=== PATIENT | female | born 1965 | race Caucasian/White ===

== ENCOUNTER 2024-04-30 06:12 | Observation (INO) ==
--- NOTE | 2024-04-06 15:35 | PAT Medication Instructions ---
Medication Instructions Date of Service April 06, 2024 Home Medications Medication Instructions Recorded blood-glucose meter (OneTouch #1 ea 05/30/23 Verio Flex Start kit) albuterol sulfate 2.5 mg/3 mL 2.5 mg (3 mL) inhalation Q4H PRN 08/06/23 (0.083 %) solution for nebulization shortness of breath or wheezing #75 mL blood sugar diagnostic (OneTouch #100 ea 12/18/23 Verio test strips) metformin 500 mg tablet,extended 1,000 mg (2 x 500 mg) PO BID #360 01/05/24 release 24 hr tabs potassium chloride 20 mEq 20 meq PO BID #180 tabs 01/05/24 tablet,extended release cetirizine 10 mg tablet 10 mg PO HS allergy symptoms #30 01/23/24 tabs lancets 28 gauge (FreeStyle #100 ea 03/12/24 Lancets) albuterol sulfate 90 mcg/actuation 2 puff inhalation QID PRN 03/29/24 aerosol inhaler (Proventil HFA) shortness of breath or wheezing #8.5 grams nitrofurantoin 100 mg PO Q12H 5 days #10 caps 03/31/24 monohydrate/macrocrystals 100 mg capsule (Macrobid) albuterol sulfate 2.5 mg/3 mL (0.083 %) solution for nebulization 2.5 mg (3 mL) inhalation Q4H PRN shortness of breath or wheezing metformin 500 mg tablet,extended release 24 hr 1,000 mg (2 x 500 mg) PO BID potassium chloride 20 mEq tablet,extended release 20 meq PO BID cetirizine 10 mg tablet 10 mg PO HS allergy symptoms albuterol sulfate 90 mcg/actuation aerosol inhaler (Proventil HFA) 2 puff inhalation QID PRN shortness of breath or wheezing nitrofurantoin monohydrate/macrocrystals 100 mg capsule (Macrobid) 100 mg PO Q12H atorvastatin 40 mg tablet 40 mg PO HS citalopram 20 mg tablet 20 mg PO HS empagliflozin 10 mg tablet (Jardiance) 10 mg PO QAM fluticasone fur. 200 mcg-umeclid 62.5 mcg-vilant 25 mcg inhalat.powder (Trelegy Ellipta) 1 inh inhalation QAM fluticasone propionate 50 mcg/actuation nasal spray,suspension (Allergy Relief (fluticasone)) 2 spray intranasal QAM glipizide 10 mg tablet, extended release 24 hr 10 mg PO QAM hydrochlorothiazide 25 mg tablet 25 mg PO QAM omeprazole 20 mg tablet,delayed release 20 mg PO QAM sitagliptin phosphate 50 mg tablet (Januvia) 50 mg PO HS DO NOT take the morning of surgery metformin 500 mg tablet,extended release 24 hr 1,000 mg (2 x 500 mg) PO BID potassium chloride 20 mEq tablet,extended release 20 meq PO BID glipizide 10 mg tablet, extended release 24 hr 10 mg PO QAM hydrochlorothiazide 25 mg tablet 25 mg PO QAM Take morning of surgery With a small sip of water, OTHERWISE NOTHING TO EAT OR DRINK AFTER MIDNIGHT: albuterol sulfate 2.5 mg/3 mL (0.083 %) solution for nebulization 2.5 mg (3 mL) inhalation Q4H PRN shortness of breath or wheezing (if needed) albuterol sulfate 90 mcg/actuation aerosol inhaler (Proventil HFA) 2 puff inhalation QID PRN shortness of breath or wheezing (use if needed; please bring rescue inhaler with you to hospital day of surgery if possible) nitrofurantoin monohydrate/macrocrystals 100 mg capsule (Macrobid) 100 mg PO Q12H fluticasone fur. 200 mcg-umeclid 62.5 mcg-vilant 25 mcg inhalat.powder (Trelegy Ellipta) 1 inh inhalation QAM fluticasone propionate 50 mcg/actuation nasal spray,suspension (Allergy Relief (fluticasone)) 2 spray intranasal QAM omeprazole 20 mg tablet,delayed release 20 mg PO QAM Take evening before surgery albuterol sulfate 2.5 mg/3 mL (0.083 %) solution for nebulization 2.5 mg (3 mL) inhalation Q4H PRN shortness of breath or wheezing (if needed) metformin 500 mg tablet,extended release 24 hr 1,000 mg (2 x 500 mg) PO BID potassium chloride 20 mEq tablet,extended release 20 meq PO BID cetirizine 10 mg tablet 10 mg PO HS allergy symptoms albuterol sulfate 90 mcg/actuation aerosol inhaler (Proventil HFA) 2 puff inhalation QID PRN shortness of breath or wheezing (if needed) nitrofurantoin monohydrate/macrocrystals 100 mg capsule (Macrobid) 100 mg PO Q12H atorvastatin 40 mg tablet 40 mg PO HS citalopram 20 mg tablet 20 mg PO HS sitagliptin phosphate 50 mg tablet (Januvia) 50 mg PO HS STOP taking 3 days before surgery empagliflozin 10 mg tablet (Jardiance) 10 mg PO QAM Other Notes If you have any questions please call us at [phone] or [phone] or [phone] or [phone]
--- NOTE | 2024-04-16 13:18 | Anesthesiology Consultation ---
Date of Service April 16, 2024 Assessment & Plan (1) Encounter for pre-operative examination: - Check BSG AM DOS - Infectious disease screening: Per assessment on 04/16/24: No known recent infectious disease contacts or current infectious disease symptoms. - Outpatient joint assessment: Pt currently scheduled for inpatient pathway. If surgeon requests review for outpatient joint pathway, patient is not recommended candidate for outpatient joint program from anesthesia standpoint based on available information. 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 She has not been very functional recently due to severe right hip pain due to arthritis. Still coughs intermittently with occasional production of clear phlegm. Attributes a lot of coughing to sinus congestion with associated drainage. Plan Continue Trelegy.. Continue short- acting bronchodilators as needed.. Continue oxygen supplementation with activity with goal saturation 90%.. Patient received influenza vaccine today.. Diet and exercise as tolerated.. Follow up in Sleep Clinic.. Reflux precautions.. Spirogram and 6 minute walk test.. Follow up with Oncology - patient is already scheduled for repeat imaging studies.. Call the clinic if any worsening shortness of breath or new symptoms." One year f/u recommended. - Radiation oncology note (03/30/24): "Spoke with patient, she reports Dr. Scott's office ([facility]) will be calling asking if it is ok to proceed with right hip replacement. Patient completed 5 fractions of SBRT to the right lung on 12/22/[address] chest without contrast on 02/20/24 and is scheduled for another scan on 06/11/24 with a follow up in the office on 06/22/24. I spoke with Dr. Alvarado who reports that from our perspective it is ok to proceed with right hip replacement. I called and spoke with Scot at [facility] and informed her of this." - Hypokalemia: Preop labs note low potassium at 2.9. Workload message sent to PCP. Awaiting hypokalemia response + surgeon-ordered PCP preop evaluation ([facility], appt 04/23). Patient otherwise acceptable risk for surgery. Chart Review Chart Review: Patient seen in Pre Admission Testing Teaching & Discussion Pre-Anesthesia Teaching/Discussion Notes: Instructed NPO after midnight before surgery,except medications with 15 cc of water. Medication instructions provided according to the PAT guidelines. History Surgery Operation Date: 04/30/24 10:40 Proposed Procedures p Right Total Hip Arthroplasty - Eugene Scott MD Height/Weight Height: 5 ft 2 in Weight: 76.2 kg Allergies Allergy/AdvReac Type Severity Reaction Status Date / Time No Known Drug Allergies Allergy Verified 04/02/24 13:21 Medications Home Medications Medication Instructions Recorded Confirmed Last Taken blood-glucose meter (OneTouch #1 ea 05/30/23 01/23/24 Unknown Verio Flex Start kit) albuterol sulfate 2.5 mg/3 mL 2.5 mg (3 mL) inhalation Q4H PRN 08/06/23 04/02/24 Unknown (0.083 %) solution for nebulization shortness of breath or wheezing #75 mL blood sugar diagnostic (OneTouch #100 ea 12/18/23 01/23/24 Unknown Verio test strips) metformin 500 mg tablet,extended 1,000 mg (2 x 500 mg) PO BID #360 01/05/24 04/02/24 Unknown release 24 hr tabs potassium chloride 20 mEq 20 meq PO BID #180 tabs 01/05/24 04/02/24 Unknown tablet,extended release cetirizine 10 mg tablet 10 mg PO HS allergy symptoms #30 01/23/24 04/02/24 Unknown tabs lancets 28 gauge (FreeStyle #100 ea 03/12/24 Unknown Lancets) albuterol sulfate 90 mcg/actuation 2 puff inhalation QID PRN 03/29/24 04/02/24 Unknown aerosol inhaler (Proventil HFA) shortness of breath or wheezing #8.5 grams nitrofurantoin 100 mg PO Q12H 5 days #10 caps 03/31/24 04/02/24 Unknown monohydrate/macrocrystals 100 mg capsule (Macrobid) atorvastatin 40 mg tablet 40 mg PO HS 04/02/24 04/02/24 Unknown citalopram 20 mg tablet 20 mg PO HS 04/02/24 04/02/24 Unknown empagliflozin 10 mg tablet 10 mg PO QAM 04/02/24 04/02/24 Unknown (Jardiance) fluticasone fur. 200 mcg-umeclid 1 inh inhalation QAM 04/02/24 04/02/24 Unknown 62.5 mcg-vilant 25 mcg inhalat.powder (Trelegy Ellipta) fluticasone propionate 50 2 spray intranasal QAM 04/02/24 04/02/24 Unknown mcg/actuation nasal spray,suspension (Allergy Relief (fluticasone)) glipizide 10 mg tablet, extended 10 mg PO QAM 04/02/24 04/02/24 Unknown release 24 hr hydrochlorothiazide 25 mg tablet 25 mg PO QAM 04/02/24 04/02/24 Unknown omeprazole 20 mg tablet,delayed 20 mg PO QAM 04/02/24 04/02/24 Unknown release sitagliptin phosphate 50 mg tablet 50 mg PO HS 04/02/24 04/02/24 Unknown (Fanny) Past Medical History Medical History Asthmatic bronchitis COPD (chronic obstructive pulmonary disease) Depression Diabetes mellitus NIDDM GERD (gastroesophageal reflux disease) History of respiratory failure 2L O2 with activity + HS HLD (hyperlipidemia) HTN (hypertension) SUMMER (obstructive sleep apnea) CPAP + 2L O2 Pancreatic lesion MRCP 02/2024 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 Recheck MRI/MRCP 1 year Pulmonary nodule "Small cell cancer" Follows with Dr. Grijalva/LIA ellison Small cell lung cancer Follows with Dr. Grijalva/LIA ellison Exercise / Class Metabolic Activity III < 4 Walking/Shop/Light housework Past Family History Family History Mother Lung cancer Father Lung cancer Sister Diabetes COPD (chronic obstructive pulmonary disease) Breast cancer Sister COPD (chronic obstructive pulmonary disease) Diabetes Brother Diabetes Dyslipidemia Hypertension Past Surgical History Surgical History H/O section H/O foot surgery R/L H/O wrist surgery right History of partial hysterectomy Hx of cholecystectomy Hx of colonoscopy Past Anesthesia History No Hx of Anesthesia Complications and No Family Hx of Anesthesia Complications History of PONV No Hx of PONV and No Hx of Motion Sickness Social History Smoking Status: Former smoker Do You Dip or Chew Tobacco: No Smoking End Date: Quit 2003 Hx Alcohol Use: Yes alcohol intake frequency: holidays/special occasions only Hx Substance Use: No Review of Systems Occasional, chronic cough at baseline. Patient denies chest pain, shortness of breath, fever, chills, wheezing, palpitations. Physical Exam Vital Signs BP 102/72 P 83 TEMP 98.0 SP02 95% on 2L O2 via NC RESP 18 Physical Full cervical extension range of motion. Full TMJ range of motion. TMD > 3.5 finger breaths Mallampati Score III Dentition: several missing teeth (few remaining teeth) Lungs: clear throughout to auscultation Cardiac: regular rate and rhythm, no murmurs noted Spine: normal Carotid arteries: negative bruit Extremities: no LE edema Lab Results Anesthesia Preop Results Results Anesthesia Widget: WBC 10.64 K/ul (4.8-10.8) 04/16/24 Hgb 14.2 g/dl (12.0-16.0) 04/16/24 Hct 44.3 % (37.0-47.0) 04/16/24 Plt 290 K/uL (130-400) 04/16/24 Na 139 mmol/L (136-145) 04/16/24 K 2.9 mmol/L (3.5-5.1) L 04/16/24 Cl 96 mmol/L (98-107) L 04/16/24 CO2 32 mmol/L (21-32) 04/16/24 BUN 17 mg/dl (6-23) 04/16/24 Creat 0.63 mg/dl (0.6-1.2) 04/16/24 Glucose Level 116 mg/dl (70-99(Fasting)) H 04/16/24 PT 11.1 Seconds (9.0-12.0) 04/16/24 PTT 28 Seconds (21-31) 04/16/24 INR 1.0 (0.9-1.1) 04/16/24 Blood Type O Positive 04/16/24 Antibody Screen NEGATIVE 04/16/24 Testing Laboratory Results HGBA1C 01/23/24: 7.7% Electrocardiogram Date: 04/16/24 NSR at 77bpm. "Normal ECG" Echocardiogram Date: 02/11/23 LVEF 58%. LV wall motion is normal. Grade 1 diastolic dysfunction. Nondilated cardiac chambers. No significant valvular pathology. Other Testing Chest CT Date: 02/20/24 IMPRESSION 14 millimeter solid pulmonary nodule in the right lower lobe, not appreciably changed.
--- NOTE | 2024-04-23 17:50 | History & Physical Report ---
Date of Service April 23, 2024 Assessment & Plan (1) Osteoarthritis of right hip: 58-year-old female with multiple medical comorbidities including a history of lung cancer and COPD and oxygen dependency along with diabetes with moderately advanced hip arthritis. Her symptoms are quite a bit worse than what I would suspect on x-ray but her pain seems to be coming from her hip. Attempt response to injection. She failed conservative measures. It is really limiting her activities. She would really like to have her hip replaced. Plan: We discussed treatment options extensively. We can proceed with right total hip replacement. The risks and benefits of this procedure were explained in depth. Certainly she is at higher risk than most. She is aware of this and would like to proceed. Her potassium was a bit high and we have looked into getting this fixed through her medical doctor. Will use aspirin for DVT prophylaxis. Her daughter is going to come and assist in her care postoperatively. (2) Myofascial pain: (3) Small cell lung cancer: (4) History of respiratory failure: (5) Depression: (6) HTN (hypertension): (7) HLD (hyperlipidemia): (8) GERD (gastroesophageal reflux disease): (9) Diabetes mellitus: (10) COPD (chronic obstructive pulmonary disease): (11) Asthmatic bronchitis: History of Present Illness Chief Complaint: . Persistent, progressive right hip pain and discomfort. Primary Care Provider: Negin Mcclain DO . The patient is a 58-year-old female who presents for surgical treatment of her right hip. She has a 3 to 4-year history of increasing right hip pain discomfort described to gotten worse over time. She has been through pretty extensive conservative treatment which would become less successful. She is on chronic oxygen due to COPD but well-controlled. Has a history of lung cancer but is under control as well.. Some pretty miserable. She is using a cane and having difficulty even getting around. She would like to have her right hip replaced. Allergies Allergy/AdvReac Type Severity Reaction Status Date / Time No Known Drug Allergies Allergy Verified 04/23/24 14:19 Home Medications Medication Instructions Recorded Confirmed Type blood-glucose meter (OneTouch #1 ea 05/30/23 01/23/24 Rx Verio Flex Start kit) albuterol sulfate 2.5 mg/3 mL 2.5 mg (3 mL) inhalation Q4H PRN 08/06/23 04/23/24 Rx (0.083 %) solution for nebulization shortness of breath or wheezing #75 mL blood sugar diagnostic (OneTouch #100 ea 12/18/23 01/23/24 Rx Verio test strips) metformin 500 mg tablet,extended 1,000 mg (2 x 500 mg) PO BID #360 01/05/24 04/23/24 Rx release 24 hr tabs potassium chloride 20 mEq 20 meq PO BID #180 tabs 01/05/24 04/23/24 Rx tablet,extended release cetirizine 10 mg tablet 10 mg PO HS allergy symptoms #30 01/23/24 04/23/24 Rx tabs albuterol sulfate 90 mcg/actuation 2 puff inhalation QID PRN 03/29/24 04/23/24 Rx aerosol inhaler (Proventil HFA) shortness of breath or wheezing #8.5 grams atorvastatin 40 mg tablet 40 mg PO HS 04/02/24 04/23/24 History citalopram 20 mg tablet 20 mg PO HS 04/02/24 04/23/24 History empagliflozin 10 mg tablet 10 mg PO QAM 04/02/24 04/23/24 History (Jardiance) fluticasone fur. 200 mcg-umeclid 1 inh inhalation QAM 04/02/24 04/23/24 History 62.5 mcg-vilant 25 mcg inhalat.powder (Trelegy Ellipta) fluticasone propionate 50 2 spray intranasal QAM 04/02/24 04/23/24 History mcg/actuation nasal spray,suspension (Allergy Relief (fluticasone)) hydrochlorothiazide 25 mg tablet 25 mg PO QAM 04/02/24 04/23/24 History omeprazole 20 mg tablet,delayed 20 mg PO QAM 04/02/24 04/23/24 History release sitagliptin phosphate 50 mg tablet 50 mg PO HS 04/02/24 04/23/24 History (Januvia) glipizide 10 mg tablet, extended 10 mg PO QAM #90 tabs 04/23/24 04/23/24 Rx release 24 hr lancets 28 gauge (FreeStyle #100 ea 04/23/24 04/23/24 Rx Lancets) Past Med/Surg History Problem List Encounter for pre-operative examination Myofascial pain Greater trochanteric bursitis of right hip Osteoarthritis of right hip Medical History History of respiratory failure 2L O2 with activity + HS Small cell lung cancer Follows with Dr. 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 Recheck MRI/MRCP 1 year SUMMER (obstructive sleep apnea) CPAP + 2L O2 HTN (hypertension) HLD (hyperlipidemia) GERD (gastroesophageal reflux disease) Diabetes mellitus NIDDM COPD (chronic obstructive pulmonary disease) Asthmatic bronchitis Surgical History H/O wrist surgery right H/O foot surgery R/L History of partial hysterectomy Hx of cholecystectomy H/O section Hx of colonoscopy Family History Mother Lung cancer Father Lung cancer Sister Diabetes COPD (chronic obstructive pulmonary disease) Breast cancer Sister COPD (chronic obstructive pulmonary disease) Diabetes Brother Diabetes Dyslipidemia Hypertension Social History Smoking Status: Former smoker Tobacco Type: Cigarettes Age Started Using Tobacco: 16; Age Quit Using Tobacco: 39; packs per day: 1.5; Second Hand Exposure: Yes (hx); Do You Dip or Chew Tobacco: No; Hx Alcohol Use: Yes Hx Substance Use: No Preferred Language: Malaysian Communication Ability: Effective Trimming Machine Set Up Operator Required: No Beliefs That Will Affect Care: None marital status: Current Living Situation: Family and Significant Other current occupational status: retired How many Children do You have: 4 Feels Safe at Home: Yes Do you think of yourself as: straight/heterosexual Gender Identity: Female Assistive Devices: CPAP, Oxygen - at Night and Walker Review of Systems All systems reviewed & are unremarkable except as noted in HPI & below. Physical Exam . Physical examination was a pleasant female who looks quite a bit older than her stated age. Examination of the right hip reveal patient walks with the use of an antalgic gait. She comes in using a cane. Leg lengths appear pretty equal. She got pain with any type of hip motion. Internal rotation in neutral at best. No knee effusion. Negative straight leg raise. Neck trachea midline, no thyromegaly Respiratory normal respiratory effort, lungs clear to auscultation Cardiovascular RRR, no murmur, no edema Gastrointestinal (Abdomen) normal bowel sounds, soft, nontender, no hepatosplenomegaly Results & Data Results & Data Laboratory Results . Diagnostic Findings . X-rays of the right hip were reviewed. Shows advanced right hip DJD. She got a 50% plus loss of the joint space. Pretty good bone density. PG Care Time/CCT Total # of Minutes Spent Total Time Spent with Patient: Total time spent is greater than 50% in coordination of care (as documented) at patient's floor/unit and/or counseling patient: Coding Level of Care Code None Diagnoses Osteoarthritis of right hip M16.11 Myofascial pain M79.18 Small cell lung cancer C34.90 History of respiratory failure Z87.09 Depression F32.A HTN (hypertension) I10 HLD (hyperlipidemia) E78.5 GERD (gastroesophageal reflux disease) K21.9 Diabetes mellitus E11.9 COPD (chronic obstructive pulmonary disease) J44.9 Asthmatic bronchitis J45.909
[2024-04-30] MEDS ORDERED: ROPIVACAINE 0.5% 5 MG/ML 30 ML VIAL ONE (06:21)
--- NOTE | 2024-04-30 06:37 | History & Physical Bridge Note ---
Date of Service April 30, 2024 History & Physical Bridge Note I have examined the patient, reviewed the History & Physical and in the interval since the performance of the History & Physical I have noted the following changes of clinical significance: no changes noted
[2024-04-30] MEDS: CeleBREX 200 MG CAP PO SCH (07:03)
[2024-04-30] MEDS: LR 60ML/HR IV SCH (07:03)
[2024-04-30] MEDS: FAMOTIDINE 20 MG TAB PO SCH (07:03)
[2024-04-30] MEDS: ACETAMINOPHEN 500 MG TAB PO SCH ×2 (07:03→14:01)
[2024-04-30] MEDS: METOCLOPRAMIDE HCL 10 MG TABLET PO SCH (07:03)
[2024-04-30] MEDS: LR 500ML BOLUS, THEN 15ML/HR IV SCH (07:27)
[2024-04-30] MEDS: dexAMETHasone**PF** 10 MG/ML VIAL IV ONE (07:27)
[2024-04-30] MEDS ORDERED: PROPOFOL IV EMULSION 10 MG/ML 20 ML VIAL IV ONE (07:56)
[2024-04-30] MEDS ORDERED: MIDAZOLAM HCL 1 MG/ML 2ML VIAL ONE ×2 (07:56→08:18)
[2024-04-30] MEDS ORDERED: KETAMINE HCL 10MG/ML SYR ONE (07:57)
[2024-04-30] MEDS ORDERED: MoRPHine SULFATE PF 1 MG/ML 10 ML AMP/VIAL ONE (08:19)
[2024-04-30] MEDS ORDERED: NALOXONE HCL 1 MG in SODIUM CHLORIDE 0.9% 1,000 ML IV PRN (08:22)
[2024-04-30] MEDS ORDERED: LACTATED RINGER'S 500 ML IV PRN (08:22)
[2024-04-30] MEDS ORDERED: MoRPHine SULFATE 2 MG/ML CARP IV PRN (08:22)
[2024-04-30] MEDS ORDERED: NALBUPHINE HCL INJ 10 MG/ML AMP IV PRN (08:22)
[2024-04-30] MEDS ORDERED: ePHEDrine sulfate 50 MG/ML AMP IV PRN (08:22)
[2024-04-30] MEDS ORDERED: diphenhydrAMINE 50 MG/ML VIAL IV PRN (08:22)
[2024-04-30] MEDS ORDERED: NALOXONE HCL 0.08 MG in SYRINGE 1.8 ML IV PRN (08:22)
[2024-04-30] MEDS ORDERED: PROMETHAZINE 6.25 MG/50.25 ML BAG IV PRN (08:22)
[2024-04-30] MEDS ORDERED: ONDANSETRON INJ 2 MG/ML 2 ML VIAL IV PRN ×2 (08:22→12:55)
[2024-04-30] MEDS ORDERED: NALOXONE HCL 0.4 MG/1 ML VIAL/CARP IV PRN ×2 (08:22→12:55)
[2024-04-30] MEDS: TRANEXAMIC ACID 1,000 MG **IV Pre-op IV SCH (08:25)
[2024-04-30] MEDS ORDERED: NO NARCOTICS OR SEDATIVES SCH (08:30)
[2024-04-30] MEDS ORDERED: DC INTRASPINAL MORPHINE SCH (08:30)
[2024-04-30] MEDS: ceFAZolin 2000MG 2,000 MG/15 ML SYR IV SCH (08:50)
[2024-04-30] MEDS: BUPIVACAINE/EPINEPHRINE 0.5% MPF 1:200,000 30 ML VIAL ONE (09:27)
[2024-04-30] MEDS ORDERED: PHENYLEPHRINE 100MCG/ML 10ML SYR IV ONE (09:41)
--- NOTE | 2024-04-30 10:39 | Operative Report ---
PG Post Operative Report Pre & Post Diagnosis Operation Date: 04/30/24 08:50 Pre-Op Diagnosis: Right Hip Osteoarthritis Post-Op Diagnosis: Right Hip Osteoarthritis I identified the patient and participated in the time-out.: Yes Procedure Operation Date: 04/30/24 08:50 Actual Procedures p Right Total Hip Arthroplasty, Uncemented(Right) - Eugene Scott MD Surgeon Eugene Scott MD [employer] Fausto Sanders PA-C Estimated Blood Loss 150 Findings Consistent with Post-Op Diagnosis Operative findings reveal a small joint effusion. She did have significant grade 4 cartilage disease of the femoral head. Not much in way of osteophyte formation. Specimens Right femoral head sent for pathology. Anesthesia Type Spinal Complications none Disposition Accompanied Patient To Recovery: No Indications The patient is a 58-year-old female with multiple medical comorbidities and a several month history of markedly increasing right hip pain and discomfort. She been through extensive conservative treatment which became less successful over time. She is x-rays were used a cane to get around. She has been evaluated by the spine doctors as well as orthopedics. It was felt the majority of her pain was coming from her hip. X-ray showed moderate hip arthritis but the MRI was fairly impressive for significant joint effusion and degenerative change. As she elected proceed with surgical treatment of her hip. Description of Procedure Operative implants consist of: 1 Biomet G7 size 48 mm acetabular shell. 2. 6.5 cancellous acetabular screws 1 of 35 mm in length and 1 of 20 mm length. 3. Marshall hole general passenger agent. 4. Highly cross-linked polyethylene liner with a 48 mm outer diameter 32 mm inner diameter. 5. DePuy Karaya size 9-125 degree angle short neck femoral component. 6. +5/32 mm ceramic articular ball. The patient was taken the op room, identified, placed on the operating table in the supine position. All contact areas were appropriately padded. IV antibiotics fibra anesthesia team. A spinal anesthetic and the implement holding area. Walker catheter was placed in sterile fashion. The patient then placed in the left lateral cubitus position. An axillary roll was placed. A stool Birkett position was used for positioning. The right hip and leg were then prepped and draped in usual sterile fashion. A posterolateral approach to the right hip was then performed to a curvilinear incision centered over the greater trochanter. Sharp dissection Through subcutaneous tissue dental of the IT band gluteal fascia the IT band gluteal fascia incised longitudinally in line with skin incision. The greater trochanter bursa was excised. The piriformis and external rotators along with the posterior hip joint capsule were then released from the posterior aspect the hip as a single layer. The hip was internally rotated and dislocated. A femoral neck osteotomy cut was made with a Final Cut about 10 mm above the lesser trochanter. Femoral head removed and sent for pathology. The femur was retracted anteriorly. Attention drawn the acetabulum. The acetabular labrum was excised. The pulmonary fat was excised. Sequential reaming the acetabular was then performed again with size 43 and progressing up to 47. I reamed a little bit with a 48 reamer and then placed a 48 mm cup in about 40 degrees lateral opening and 20 degrees of anteversion. It was fixed with two 6.5 screws. Trial liner was placed. Attention drawn the femur. The proximal femur was entered with a [employer] cutter followed by canal finder. I then broached beginning with size 8. I had trouble getting a [address] We did have to use the canal finder to make the distal hole a little bit larger and were very eventually able to get the broach almost the whole way to the calcar cut. We then trialed the hip and the +5 articular ball provided full stability appropriate soft tissue tension and what appeared to be equal leg lengths. We elect to place these implants. All trial implants were removed. An apex hole general passenger agent was placed. Highly cross-linked polyethylene liner was placed. A size 9 KLA femoral stem with a short neck/125 degree angle within placed. This did quite get the whole way down to the calcar cut. We left this just a millimeter or 2 proud. A +5/32 millimeter articular ball was placed. Hip was located once again found to be stable. Attention drawn toward closing. Wounds irrigated coconuts of normal saline. I did inject locally with 60 cc of absent Marcaine with epinephrine. The posterior capsule and external rotators then repaired through drill holes in the posterior trochanter with #2 Tycron suture. The IT band gluteal fascia was then closed with #1 PDS suture running fashion the subcutaneous tissues then closed with 2 layers of the deep layer #2 Vicryl suture in the subcutaneous tissues with 2-0 Dexon suture in a buried interrupted fashion. Skin was closed skin kim. The leg was then cleaned and dried. A Prevena VAC dressing was applied. The patient was then transferred to the recovery in stable condition. Patient tolerated procedure well and there were no complications. Fausto Sanders, my physician anesthesiologists' assistant, was present for the entire procedure. His assistance was essential and required for appropriate patient positioning, prepping and draping, surgical exposure, performing the technical details of the operation, placement the implants, closure of the wound, and placement of the sterile bandage. I attest to the content of the Intraoperative Record and any orders documented therein. Any exceptions are noted below.
--- NOTE | 2024-04-30 11:14 | XRay Report ---
XR hip 1V RT w pelvis CLINICAL HISTORY: Postoperative evaluation. COMPARISON: MRI of the right hip August 26, 2023. Right hip radiographs December 28, 2023. FINDINGS: Alignment of the total right hip arthroplasty is anatomic. There is no periprosthetic frac ture or unexpected radiopaque foreign body. There are skin kim. There are 2 acetabular screws. IMPRESSION: Expected findings following total right hip arthroplasty. ACT 112: Negative or not required by law. Electronically signed by: Jonh Russo M.D. 04/30/2024 11:13 AM
[2024-04-30] MEDS ORDERED: bisacodyL 10 MG SUPP PR PRN (12:55)
[2024-04-30] MEDS ORDERED: PHARMACY GLYCEMIC MGMT CONSULT PRN (12:55)
[2024-04-30] MEDS ORDERED: traMADol HCL 50 MG TABLET PO PRN (12:55)
[2024-04-30] MEDS ORDERED: ALBUTEROL 0.083% NEBU SOLN 3 ML VIAL INH PRN (12:55)
[2024-04-30] MEDS ORDERED: ALBUTEROL HFA 8 GM INHALER INH PRN (12:55)
[2024-04-30] MEDS ORDERED: diphenhydrAMINE Capsule 25 MG CAP PO PRN (12:55)
[2024-04-30] MEDS ORDERED: HYDROmorphone INJ 0.5 MG/0.5 ML SYR IV PRN (12:55)
[2024-04-30] MEDS ORDERED: ALUMINUM/MAGNESIUM SUSP 30 ML UDC PO PRN (12:55)
[2024-04-30] MEDS ORDERED: ONDANSETRON 4 MG OD TAB PO PRN (12:55)
[2024-04-30] MEDS ORDERED: METOCLOPRAMIDE HCL INJ 5 MG/ML 2 ML VIAL IV PRN (12:55)
[2024-04-30] MEDS ORDERED: MAGNESIUM HYDROXIDE SUSP 30 ML UDC PO PRN (12:55)
--- NOTE | 2024-04-30 13:27 | Anesthesiology Progress Note ---
Date of Service April 30, 2024 Anesthesia Post Procedure Vital Signs Vital Signs: Temp Pulse Pulse Resp BP Pulse Ox O2 Del Method 04/30/24 12:35 15 96 04/30/24 12:35 Nasal Cannula 04/30/24 12:35 37.0 C 72 16 92/60 L 96 Nasal Cannula 04/30/24 12:30 74 14 135/71 93 Nasal Cannula 04/30/24 12:20 71 12 126/87 93 Nasal Cannula 04/30/24 12:10 36.4 C L 67 11 L 122/79 92 Nasal Cannula 04/30/24 12:00 62 14 131/72 95 Nasal Cannula 04/30/24 11:50 62 14 109/66 94 Nasal Cannula 04/30/24 11:40 62 14 110/68 94 Nasal Cannula 04/30/24 11:30 68 14 114/64 92 Nasal Cannula 04/30/24 11:20 66 19 130/92 94 Oxymask 04/30/24 11:10 36.4 C L 60 14 96/72 L 95 Oxymask 04/30/24 11:00 63 13 118/78 96 Oxymask 04/30/24 10:50 65 18 116/69 95 Oxymask 04/30/24 10:40 64 15 112/66 94 Oxymask 04/30/24 10:30 70 15 124/82 97 Oxymask 04/30/24 10:24 36.0 C L 73 13 124/72 94 Oxymask 04/30/24 06:45 36.7 C 67 20 115/74 94 Nasal Cannula O2 Flow Rate 04/30/24 12:35 04/30/24 12:35 3 04/30/24 12:35 3 04/30/24 12:30 3 04/30/24 12:20 3 04/30/24 12:10 3 04/30/24 12:00 3 04/30/24 11:50 3 04/30/24 11:40 3 04/30/24 11:30 3 04/30/24 11:20 3 04/30/24 11:10 3 04/30/24 11:00 3 04/30/24 10:50 6 04/30/24 10:40 6 04/30/24 10:30 6 04/30/24 10:24 9 04/30/24 06:45 2 Pain Intensity Right Hip: Pain Intensity: 7 Transfer of Care Handoff Completed per policy Notes Mental Status: alert / awake / arousable Patient Amnestic to Procedure: Yes Nausea / Vomiting: adequately controlled Pain: adequately controlled Airway Patency, RR, SpO2: stable & adequate BP & HR: stable & adequate Hydration State: stable & adequate Neuraxial Anesthesia: was administered and sensory block is resolving Anesthetic Complications: no major complications apparent
[2024-04-30] MEDS ORDERED: GLUCOSE 40% GEL 15 GM TUBE PO PRN (13:30)
[2024-04-30] MEDS ORDERED: CARBOHYDRATES FOR HYPOGLYCEMIA PO PRN (13:30)
[2024-04-30] MEDS ORDERED: GLUCAGON FOR INJ 1 MG VIAL SQ PRN (13:30)
[2024-04-30] MEDS ORDERED: DEXTROSE 50% 50 ML SYRINGE IV PRN (13:30)
[2024-04-30] MEDS ORDERED: GLUCOSE 10 TAB/TUBE PO PRN (13:30)
[2024-04-30] MEDS: SODIUM CHLORIDE 0.9% 1,000 ML IV SCH ×2 (13:32→13:50)
[2024-04-30] MEDS: MoRPHine SULFATE PF 1 MG/ML 10 ML AMP/VIAL INT SPINAL ONE (13:50)
--- NOTE | 2024-04-30 13:56 | Pharmacy Report ---
Pharmacy Glycemic Short Note 2 - Date of Service April 30, 2024 - Glycemic Short BSG Results (Last 24 hours): 04/30/24 04/30/24 10:28 12:18 POC Glucose 242 H 231 H OUTPATIENT ANTIDIABETIC REGIMEN: * Januvia 50 mg QHS * Metformin 1 g BID * Glipizide ER 10 mg QAM * Jardiance 10 mg * A1c 7.2% (04/23/24) ASSESSMENT: 04/30 * BW here Post-Op for Right Total Hip Arthroplasty. PMH includes small cell lung cancer, HTN, HLD, pancreatic lesions, and pancreatic nodules. Pharmacy consulted for management of T2DM while inpatient. Pt has received 10 mg of IV Dexamethasone today, will receive another dose tomorrow AM. BSGs post op in 200s, well above goal range, adding lantus to cover steroid effects. Pt ordered T2DM diet. PLAN FOR INPATIENT GLYCEMIC CONTROL: * Hold outpatient oral diabetes medications * Basal insulin * Lantus 20 units SQ * Bolus insulin * NovoLog per scale ACHS or Q6hrs while NPO * Goal Range: Low 110 mg/dL - High 140 mg/dL * Correction Factor: 20 mg/dL/unit * Nutritional / Prandial insulin per carb ratio of 1 unit per 7 grams CHO consumed
[2024-04-30] MEDS: LANTUS PER UNIT CHARGE SC ONE (13:59)
[2024-04-30] MEDS: INSULIN ASPART PER UNIT CHARGE SC SCH ×2 (13:59→23:53)
[2024-04-30] MEDS ORDERED: ACETAMINOPHEN 500 MG TAB PO SCH (14:00)
[2024-04-30] MEDS: KETOROLAC 30 MG/ML VIAL IV SCH (14:01)
--- OUTSIDE RECORDS SUMMARY | 2024-04-30 14:49 | External Medical Summary | Summary of Care ---
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 1 Each 1 01/01/2021 Active Omeprazole 20 MG Oral Capsule Delayed Release (PriLOSEC)Indicat ions:Gastroesopha geal reflux disease without esophagitis Take 1 Cap by mouth daily. 1 hour before the first meal of the day 90 Cap 3 03/05/2021 Active Haowj.comTouch Delica Plus [id number] As Directed 100 Each 1 05/30/2023 Active Haowj.comTouch Verio Flex System w/Device Kit Test daily as directed 1 Kit 05/30/2023 Active hydroCHLOROthiazi de 25 MG Oral Tablet (Hydrodiuril) take 1 tablet by mouth once daily 90 Tablet 3 06/09/2023 Active oxygen IN GASIndications:IL D (interstitial lung disease) (HCC),Chronic hypoxemic respiratory failure (HCC) 3 lpm via n/c w/activity and bled in cpap at bedtime. Dx: J84.9, J96.11, G 47.33 1 Each 10/27/2023 Active Bisacodyl 5 MG Oral Tablet Delayed Release (Dulcolax)Indicat ions:Constipation , unspecified constipation type Take 2 Tablets by mouth daily. 11/04/2023 Active Docusate Sodium 100 MG Oral Capsule (Colace)Indicatio ns:Constipation, unspecified constipation type Take 2 Capsules by mouth daily. 11/04/2023 Active WhoSay In Vitro Strip (Glucose Blood) Check blood sugars three times daily as directed. 100 Strip 5 12/18/2023 Active Trelegy Ellipta 200-62.5-25 MCG/ACT Aerosol Powder Breath Activated (Fluticasone-Umec lidinium-Vilanter ol) Use 1 inhalation daily 60 Each 2 01/05/2024 Active Albuterol Sulfate HFA 108 (90 Base) MCG/ACT Inhalation Aerosol Solution 2 puff inhaled four times daily As Needed for shortness of breath or wheezing 8.5 g 01/05/2024 Active Atorvastatin Calcium 40 MG Oral Tablet (Lipitor) Take 40 mg (1 tablet) orally daily 90 Tablet 3 01/05/2024 Active Citalopram Hydrobromide 20 MG Oral Tablet (CeleXA) Take 20 mg (1 tablet) orally daily 90 Tablet 3 01/05/2024 Active glipiZIDE ER 10 MG Oral Tablet Extended Release 24 Hour (Glucotrol XL) Take 10 mg (1 tablet) orally daily 90 Tablet 3 01/05/2024 Active Januvia 50 MG Oral Tablet (SITagliptin) Take 50 mg (1 tablet) orally daily 90 Tablet 3 01/05/2024 Active metFORMIN HCl ER 500 MG Oral Tablet Extended Release 24 Hour (Glucophage XR) Take 1000 mg (2 tablets) orally twice a day 360 Tablet 3 01/05/2024 Active Potassium Chloride ER 20 MEQ Oral Tablet Extended Release Take 20 mEq (1 tablet) orally twice a day 180 Tablet 3 01/05/2024 Active Cetirizine HCl 10 MG Oral Tablet (ZyrTEC) Take 10 mg (1 tablet) orally at bedtime for allergy symptoms 30 Tablet 1 01/23/2024 Active Jardiance 10 MG Oral Tablet (Empagliflozin) Take 1 tablet by mouth once daily. 30 Tablet 2 01/29/2024 Active Fluticasone Propionate 50 MCG/ACT Nasal Suspension (Flonase) Instill 2 sprays intranasally daily; administer into each nostril 16 g 02/20/2024 Active Assure Comfort Lancets 28G As directed 100 Each 1 03/12/2024 Active CPAP Inhale 8 cm by mouth every night at bedtime. Oxygen 3 lpm bled into cpap Active Respiratory Therapy Supplies DeviceIndications :ILD (interstitial lung disease) (HCC),Chronic hypoxemic respiratory failure (HCC) CPAP 8 cm at bedtime w/oxygen 3 lpm bled into cpap 1 Each 10/27/2023 4 Discontinue d(Medicatio n List Clean Up) Trelegy Ellipta 200-62.5-25 MCG/ACT Aerosol Powder Breath Activated (Fluticasone-Umec lidinium-Vilanter ol) Use 1 inhalation daily 60 Each 2 01/23/2024 4 Discontinue d(Medicatio n List Clean Up) glipiZIDE ER 10 MG Oral Tablet Extended Release 24 Hour (Glucotrol XL) Take 10 mg (1 tablet) orally daily 90 Tablet 3 02/10/2024 4 Discontinue d(Medicatio n List Clean Up) glipiZIDE ER 10 MG Oral Tablet Extended Release 24 Hour (Glucotrol XL) Take 10 mg (1 tablet) orally daily 90 Tablet 3 03/12/2024 4 Discontinue d(Medicatio n List Clean Up) Albuterol Sulfate HFA 108 (90 Base) MCG/ACT Inhalation Aerosol Solution Inhale 2 puffs, by mouth, four times daily as needed for shortness of breath or wheezing 8.5 g 03/29/2024 4 Discontinue d(Medicatio n List Clean Up) Fluticasone Propionate 50 MCG/ACT Nasal Suspension (Flonase) Administer 2 sprays into each nostril daily 16 g 03/29/2024 4 Discontinue d(Medicatio n List Clean Up) Assure Comfort Lancets 28G As directed 100 Each 1 04/23/2024 4 Discontinue d(Medicatio n List Clean Up) glipiZIDE ER 10 MG Oral Tablet Extended Release 24 Hour (Glucotrol XL) Take 10 mg (1 tablet) orally daily in the morning 90 Tablet 3 04/23/2024 4 Discontinue d(Medicatio n List Clean Up) Hospital, Clinic, or Other Facility Administered Medication Ordered Dose Route Frequency Start Date End Date Status Albuterol Sulfate (Proventil) (2.5 MG/3ML) 0.083% inhalation solution 2.5 mgIndications:Adenocarc inoma of lower lobe of right lung (HCC) 2.5 mg NEBULIZER PRN 09/29/2023 09/28/2024 Active Albuterol Sulfate (Proventil) (5 MG/ML) 0.5% *conc* inhalation solution 2.5 mgIndications:Adenocarc inoma of lower lobe of right lung (HCC) 2.5 mg NEBULIZER PRN 09/29/2023 09/28/2024 Active Albuterol Sulfate (Proventil) (2.5 MG/3ML) 0.083% inhalation solution 2.5 mgIndications:COPD, moderate (HCC) 2.5 mg NEBULIZER PRN 03/23/2024 Active Albuterol Sulfate (Proventil) (5 MG/ML) 0.5% *conc* inhalation solution 2.5 mgIndications:COPD, moderate (HCC) 2.5 mg NEBULIZER PRN 03/23/2024 Active documented as of this encounter (statuses as of 04/27/2024) Active Problems Problem Noted Date Diagnosed Date Moderate episode of recurrent major depressive d isorder 12/27/2021 Type 2 diabetes mellitus wit hout complication, without long-term current use of insulin 11/20/2021 COPD, group C, by GOLD 2017 classification 03/26 Overview: Per COPD GOLD Classification COPD exacerbation 01/16/2021 documented as of this encounter (statuses as of 04/27/2024) Resolved Problems Problem Noted Date Diagnosed Date Resolved Date Malignant neoplasm of right lung 03/16/2024 03/24/2024 documented as of this encounter (statuses as of 04/27/2024) Immunizations Name Administration Dates Next Due COVID-19 mRNA, LNP-s, No Pre serve, 2-Dose Series (FTBpro) 11/13/2020,10/23/2020 COVID-19, LNP-s, No Preserve , Julian-sucrose, Ages 12+ (Pfizer) 12/08/2021,06/18/2021 Covid-19, Mrna, Lnp-s, Pf, B ivalent, 30 Mcg, IM, 12 yrs and above (Pfizer) 06/08/2022 Pneumococcal Conjugate Vacci ne, 20-valent (Trlczfa23) 12/27/2021 Pneumococcal Polysaccharide PPV23 (Pneumovax) 03/06/2021(Deferred: Patient Refused - vacc will be sent to pharmacy if pt agrees in future) Seasonal Influenza, PF, 6 M & above, IM , (FluLaval or Fluzone) 09/25/2023,05/16/2021 Seasonal Influenza, Trivalen t, (IIV3), PF, (Fluzone) 03/23/2024 TDAP (age 10 and older)(Boostrix) 12/28/2021 Zoster Vaccine Recombinant (Shingrix) 05/14/2022 ,12/28/2021 documented as of this encounter Social History Tobacco Use Types Packs/Day Years Used Date Smoking Tobacco: Former Cigarettes 2 20 0 01/12/1984 - 01/12/2004 Smokeless Tobacco: Never Alcohol Use Standard Drinks/Week Comments Yes 0 (1 standard drink = 0.6 oz pur e alcohol) Occasional AUDIT-C Answer Date Recorded Q1: How often do you have a drink containing alc ohol? Monthly or less 01/01/2021 Q2: How many drinks containi ng alcohol do you have on a typical day when you are drinking? 3 or 4 01/01/2021 Q3: How often do you have si x or more drinks on one occasion? Less than monthly 01/01/2021 PHQ-2 Answer Date Recorded PHQ Adult Total Score 0 01/01/2021 Hunger Vital Sign Answer Date Recorded Within the past 12 months, y ou worried that your food would run out before you got the money to buy more. Never true 12/26/19 22 Within the past 12 months, t he food you bought just didn't last and you didn't have money to get more. Never true 12/25/2021 Utilities Answer Date Recorded Do you have trouble paying y our heating, water, or electric bill? (Adult - for ages 18 years and over) Not on file 12/30/2023 Is your family able to pay t he heat, water, or electric bill? (Household - for ages 0-17 years) Not on file 12/30/2023 Does your family have access to good internet? (Household - for ages 0-17 years) Not on file 12/30/2023 Social Connections Answer Date Recorded How often do you feel lonely or isolated from those around you? (Adult - for ages 18 years and over) Not on file 12/30/2023 Sex and Gender Information Value Date Recorded Sex Assigned at Female 12/25/2021 4:30 AM EDT Gender Identity Female 12/25/2021 4:30 AM EDT Sexual Orientation Not on file Job Start Date Occupation Industry Not on file Not on file Not on file documented as of this encounter Progress Notes * Garcia Grijalva MD - 04/27/2024 1:57 PM EDT 04/27/2024 Pulmonary Medicine [facility] [place] [address] [id number] [id number] Katerina Rodriguez 1965 female 58 year old Subjective Telemedicine consent: This visit was completed by telemedicine due to restrictions of the COVID-19 pandemic. All issues below were discussed and addressed but no physical exam was performed. If it was felt that the patient should be evaluated in clinic then they were directed there. The patient verbally consented to thevisit. PULMONARY TELEMEDICINE PROGRESS NOTE REFERRING PHYSICIAN: Adis Plaza DO CC: Chief Complaint Patient presents with Follow Up HPI: Katerina Rodriguez is a 58 yo F, with hx of COPD, respiratory failure, Adenocarcinoma of right lower lobe lung s/p radiation in December 2023, SUMMER, Chronic rhinitis, GERD. She has had significant right hip problem and scheduled for right hip surgery this week. She was last seen on 03/23/2024 and has been doing well since then. No recent respiratory tract infection and has not required prednisone for shortness of breath. She has had major surgeries in the past which will include section and hysterectomy which was well tolerated. At last visit, she was able to maintain decent saturation at rest and with mild exertion. FiO2 requirement was actually decreased from 3 L to 2 L with moderate to strenuous activities. She had CT scan of the chest, PFT, and 6 minute walk test done and results of test were reviewed atlast visit. She has been using her inhaler as recommended, and has been compliant with her CPAP. Patient is stable from pulmonary point of view to undergo the stated procedure, but remains at mildrisk based on her age and baseline comorbid conditions. Patient is functional with MMRC of 0 at last visit. Prior visit - 03/23/24 Katerina Rodriguez is a 58 yo F, with hx of respiratory failure on oxygen supplementation, COPD, rightlower lobe adenoca s/p radiation therapy (January 04), SUMMER, chronic rhinitis, GERD. She has not been very functional recently due to severe right hip pain due to arthritis. She has been using her inhaler-Trelegy as recommended and finds inhaler helpful. She has short-acting bronchodilator- albuterol and also has been compliant with oxygen supplementation. Continues to use CPAP at night. She had CT chest - 02/20/24, PFT and 6 MWT - 10/21/23 Prior visit - 03/14/[address] scan of the chest done which showed evidence of increased solid component of right lowerlobe lung nodule. Patient subsequently had PET-CT done and the results is noted below. She continues to require oxygen supplementation to maintain decent saturation with activity. She is using her CPAP as recommended and was encouraged. Patient actually acquired her CPAP when she was in [place] and has not been following up in the Sleep Clinic. She had CT chest, and PET CT - 02/2023 and was scheduled for CT biopsy of nodule. Interm History/Respiratory Symptoms Cough: no Hemoptysis: no Sinus Symptoms: no Hospitalizations: no ED Trips: no Triggers: no Nocturnal: no CPAP/BiPAP/O2: cpap and oxygen DME Supplier: [facility] Flu Vaccine: 2023 Pneumovax: no Prevnar: 2021 COVID 19: x 6 CAT mMRC Results 03/08/2024 10:19 03/22/2024 15:07 04/27/2024 12:48 Modified Medical Research [place] Dyspnea Scale When do you become breathless? (0) I only get breathless with strenuous exercise (0) I only get breathless with strenuous exercise (0) I only get breathless with strenuous exercise Total MMRC Score 0 0 0 COPD Assessment Test (CAT) How frequently do you cough? (4) (3) (0) - I never cough Do you have phlegm in your chest? (3) (3) (0) - I have no phlegm (mucus) in my chest Is your chest tight? (3) (3) (0) - My chest does not feel tight at all How breathless do you become when walking up a hill or steps? (5) - When I walk up a hill or one flight of stairs I am very breathless (5) - When I walk up a hill or one flight of stairs I am very breathless (0) - When I walk up a hill or one flight of stairs I am not breathless How limited are you doing activities at home? (4) (5) - I am very limited doing activities at home (0) - I am not limited doing any activities at home How confident are you leaving home with your lung condition? (1) (2) (0) - I am confident leaving my home despite my condition How soundly do you sleep? (1) (4) (0) - I sleep soundly How much energy do you have? (4) (5) - I have no energy at all (2) Total CAT Score 25 30 2 ROS: Const: Denies fever and not feeling well. Eyes: Denies pain. ENMT: Denies pain and pressure of the ears. Denies sore throat. CV: Denies chest pain and palpitations. Resp: as noted above GI: Denies abdominal pain, diarrhea, nausea and vomiting. : Urinary: denies dysuria and frequency. Musculo: Denies muscle pain. Neuro: Denies dizziness, headache, numbness. Jae/Lymph: Denies excessive bleeding and easy bruising. Past Medical History: Diagnosis Date COPD (chronic obstructive pulmonary disease) (HCC) Diabetes (HCC) Hypercholesteremia Hypertension SUMMER (obstructive sleep apnea) Sleep apnea, obstructive Past Surgical History: Procedure Laterality Date DELIVERY CHOLECYSTOTOMY OR CHOLECYSTOSTOMY, PERC COLONOSCOPY, DIAGNOSTIC (RECTUM) N/A 05/10/2021 normal/recall 10 years/COLONOSCOPY FLEXIBLE PROXIMAL DIAGNOSTIC performed by Jesús Dominguez OR [facility] FX/DISLOC,RADIAL,PERC SKELETAL FIXATION Right 11/30/2021 PERCUTANEOUS SKELETAL FIXATION DISTAL RADIAL FRACTURE OR EPIPHYSEAL SEPARATION performed by Yury Cardoso Jr., MD at OR [facility] IR BIOPSY 04/16/2023 IR BIOPSY 09/25/2023 PARTIAL HYSTERECTOMY REVISION OF FOOT AND ANKLE Social History Socioeconomic History Marital status: Occupational History Occupation: 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 Gas heat Central air conditioning. 01/2021 moved here from [place]. Social Determinants of Health Food Insecurity: No Food Insecurity (12/25/2021) Hunger Vital Sign Worried About Running Out of Food in the Last Year: Never true Ran Out of Food in the Last Year: Never true Social Connections Family History Problem Relation Name Age of Onset No Known Problems Sister Scarlett Other (Other) Other MT's BrCA's one fatality from brca Lung cancer Mother With extensive mets, age 49 Lung cancer Father in his 40s Diabetes Sister (Half) Michelle COPD Sister (Half) Michelle Breast Cancer Sister (Half) Michelle Diabetes Sister (Half) [place] COPD Sister (Half) [place] Hyperlipidemia Brother (Half) Edward Hypertension Brother (Half) Edward Diabetes Brother (Half) Edward No Known Problems Brother (Half) Marcial No Known Problems Brother (Half) Jeancarlos Current Outpatient Medications Medication Sig Dispense Refill Blood Pressure Cuff Check bp daily and record to bring to PCPs office for each visit. 1 Each 1 Omeprazole 20 MG Oral Capsule Delayed Release (PriLOSEC) Take 1 Cap by mouth daily. 1 hour before the first meal of the day 90 Cap 3 OneTouch Delica Plus [id number] As Directed 100 Each 1 SugarSyncio Flex System w/Device Kit Test daily as directed 1 Kit 0 hydroCHLOROthiazide 25 MG Oral Tablet (Hydrodiuril) take 1 tablet by mouth once daily 90 Tablet 3 oxygen IN GAS 3 lpm via n/c w/activity and bled in cpap at bedtime. Dx: J84.9, J96.11, G 47.33 1 Each 99 Bisacodyl 5 MG Oral Tablet Delayed Release (Dulcolax) Take 2 Tablets by mouth daily. Docusate Sodium 100 MG Oral Capsule (Colace) Take 2 Capsules by mouth daily. WhoSay In Vitro Strip (Glucose Blood) Check blood sugars three times daily as directed. 100Strip 5 Trelegy Ellipta 200-62.5-25 MCG/ACT Aerosol Powder Breath Activated (Zegtwjwhris-Vnujivkyqqbw-Yjsxdhodxw) Use 1 inhalation daily 60 Each 2 Albuterol Sulfate HFA 108 (90 Base) MCG/ACT Inhalation Aerosol Solution 2 puff inhaled four times daily As Needed for shortness of breath or wheezing 8.5 g 0 Atorvastatin Calcium 40 MG Oral Tablet (Lipitor) Take 40 mg (1 tablet) orally daily 90 Tablet 3 Citalopram Hydrobromide 20 MG Oral Tablet (CeleXA) Take 20 mg (1 tablet) orally daily 90 Tablet 3 glipiZIDE ER 10 MG Oral Tablet Extended Release 24 Hour (Glucotrol XL) Take 10 mg (1 tablet) orallydaily 90 Tablet 3 Januvia 50 MG Oral Tablet (SITagliptin) Take 50 mg (1 tablet) orally daily 90 Tablet 3 metFORMIN HCl ER 500 MG Oral Tablet Extended Release 24 Hour (Glucophage XR) Take 1000 mg (2 tablets) orally twice a day 360 Tablet 3 Potassium Chloride ER 20 MEQ Oral Tablet Extended Release Take 20 mEq (1 tablet) orally twice a uim937 Tablet 3 Cetirizine HCl 10 MG Oral Tablet (ZyrTEC) Take 10 mg (1 tablet) orally at bedtime for allergy symptoms 30 Tablet 1 Jardiance 10 MG Oral Tablet (Empagliflozin) Take 1 tablet by mouth once daily. 30 Tablet 2 Fluticasone Propionate 50 MCG/ACT Nasal Suspension (Flonase) Instill 2 sprays intranasally daily; administer into each nostril 16 g 0 Assure Comfort Lancets 28G As directed 100 Each 1 CPAP Inhale 8 cm by mouth every night at bedtime. Oxygen 3 lpm bled into cpap Current Facility-Administered Medications Medication Dose Route Frequency Provider Last Rate Last Admin Albuterol Sulfate (Proventil) (2.5 MG/3ML) 0.083% inhalation solution 2.5 mg 2.5 mg Nebulizer PRN Garcia Grijalva MD Albuterol Sulfate (Proventil) (5 MG/ML) 0.5% *conc* inhalation solution 2.5 mg 2.5 mg Nebulizer Garcia Galarza MD Albuterol Sulfate (Proventil) (2.5 MG/3ML) 0.083% inhalation solution 2.5 mg 2.5 mg Nebulizer PRN Albuterol Sulfate (Proventil) (5 MG/ML) 0.5% *conc* inhalation solution 2.5 mg 2.5 mg Nebulizer PRN Review of patient's allergies indicates: No Known Allergies Assessment Pre-operative respiratory examination (Primary) Patient is stable from pulmonary point of view to undergo the stated procedure- right hip surgery. She remains at mild risk for anesthetic complications and respiratory failure based on her age and comorbid conditions. Recommendations Bronchodilator nebulization pre and postprocedure as needed Patient should continue with her maintenance inhaler Standard DVT prophylaxis Early ambulation Incentive spirometry and flutter use Baseline sleep apnea and should be on CPAP, when sleeping Chronic hypoxemic respiratory failure (HCC) Stable on room air at rest but requires oxygen supplementation 2 L with moderate to strenuous activities activity. Goal saturation of 90%. Adenocarcinoma of lower lobe of right lung (HCC) Stable and following up with Oncology SUMMER (obstructive sleep apnea) Compliance with CPAP encouraged COPD, moderate (HCC) Compliance with Trelegy Gastroesophageal reflux disease without esophagitis Reflux precautions Rheumatoid factor positive Stable Chronic rhinitis Clinically stable Plan Patient is stable from pulmonary point of view to undergo the stated procedure. Please see recommendations above. Compliance with Trelegy Short-acting bronchodilators as needed Reflux precautions Diet and exercise as tolerated Compliance with CPAP Oxygen supplementation 2 L with moderate to strenuous activities Call the clinic if any worsening shortness of breath or new symptoms. Garcia Grijalva MD COVID-19 education: At this time the patient is not suspected of having COVID-19. Answered patient's questions about COVID-19 including signs and symptoms, self home care and warning signs to look for especially the worsening of symptoms and respiratory distress generally occurring around day 8/9. Advised if seeks care to call first to allow for proper isolation precautions. I spent more than 50% of the 40 minute telemedicine visit counseling and discussing health concerns. DISCLAIMER: This dictation was verbally transcribed via Dictation system. Occasional Errors, spelling flaws andomissions are inherent in digital transcriptions. Please contact the undersigned for any clarification/correction in the dictated transcript as needed. documented in this encounter Nursing Notes * Loree Talavera LPN - 04/27/2024 12:45 PM EDT FU: COPD, moderate Chronic hypoxemic respiratory failure Adenocarcinoma of lower lobe of right lung SUMMER (obstructive sleep apnea) Rheumatoid factor positive Chronic rhinitis Gastroesophageal reflux disease without esophagitis Interm History/Respiratory Symptoms Cough: no Hemoptysis: no Sinus Symptoms: no Hospitalizations: no ED Trips: no Triggers: no Nocturnal: no CPAP/BiPAP/O2: cpap and oxygen DME Supplier: [facility] Flu Vaccine: 2023 Pneumovax: no Prevnar: 2021 COVID 19: x 6 CAT mMRC Results 03/08/2024 10:19 03/22/2024 15:07 04/27/2024 12:48 Modified Medical Research [place] Dyspnea Scale When do you become breathless? (0) I only get breathless with strenuous exercise (0) I only get breathless with strenuous exercise (0) I only get breathless with strenuous exercise Total MMRC Score 0 0 0 COPD Assessment Test (CAT) How frequently do you cough? (4) (3) (0) - I never cough Do you have phlegm in your chest? (3) (3) (0) - I have no phlegm (mucus) in my chest Is your chest tight? (3) (3) (0) - My chest does not feel tight at all How breathless do you become when walking up a hill or steps? (5) - When I walk up a hill or one flight of stairs I am very breathless (5) - When I walk up a hill or one flight of stairs I am very breathless (0) - When I walk up a hill or one flight of stairs I am not breathless How limited are you doing activities at home? (4) (5) - I am very limited doing activities at home (0) - I am not limited doing any activities at home How confident are you leaving home with your lung condition? (1) (2) (0) - I am confident leaving my home despite my condition How soundly do you sleep? (1) (4) (0) - I sleep soundly How much energy do you have? (4) (5) - I have no energy at all (2) Total CAT Score 25 30 2 documented in this encounter Plan of Treatment Upcoming Encounters Date Type Department Care Team (Late st Contact Info) Description 06/11/2024 12:30 PM EST [address] [id number] 06/22/2024 1:00 PM EST Office Visit Rad[facility] [address] [facility] [id number] [facility]irso [facility] [address] [facility] [phone] 03/23/2025 2:30 PM EDT PulmDiagnostic Pulmonary Function Lab, [address] [id number] [facility], Pulm Function Room [address] [place], [place] [address] miranda [id number] 03/23/2025 3:00 PM EDT [facility], [address] [address] [facility], Pulm Function Room [address] [place], [place] [address], [place] [address] 04/13/2025 1:40 PM EDT Office Visit Pulmonary Medicine Rafael Jacobo [address] [id number] Garcia Grijalva MD [address] [id number] Scheduled Procedures Name Priority Associated Diagnoses Date/Ti me COLONOSCOPY FLEXIBLE PROXIMA L DIAGNOSTIC Recall Special screening for malignant neoplasms, colon Health Maintenance Due Date Last Done Comments HIV Screening 1980 Diabetic Foot Exam 1983 Hepatitis C Screening 1983 Hepatitis B Vaccine (1 of 3 - 19+ 3-dose series) 1984 Pap Smear 1986 Cervical Cancer Screening 1995 HPV/Co-Test 1995 Cologuard 2010 Fecal Occult Blood Test 2010 Sigmoidoscopy 2010 *ADVANCE DIRECTIVE NOT ON FILE 04/20/2021 HbA1c 10/17/2021 04/18/2021 Depression Monitoring 01/01/2022 01/01/2021 Albumin/Creatinine Ratio 04/18/2022 04/18/2021 GFR 12/28/2022 12/28/2021, 05/2 , 04/18/2021 Diabetic Eye Exam 01/25/2023 01/25/2022 COVID-19 Vaccine ( season) 2024 07/25/2023, 06/08/2022, 12/08/2021, Additional history exists Mammogram 11/19/2024 11/20/2023, 05/0 09/2023, 09/13/2022, Additional history exists O2 ASSESSMENT COMPLETED IN PAST YEAR FOR COPD 03/23/2025 03/23/2024 Lipid Panel 12/28/2026 12/28/2021, 04/18/2021 Colonoscopy 05/10/2031 05/10/2021, 05/10/2021 Colorectal Cancer Screening 05/10/2031 DTap/Tdap Vaccines (2 - Td or Tdap) 12/29/2031 12/28/2021 Alpha-1 Antitrypsin Completed 04/18/2021 Pneumococcal Vaccine: Pediatrics (0 to 5 Years) and At-Risk Patients (6 to 64 Years) Completed 12/27/2021 Zoster Vaccines Completed 05/14/2022, 12/28/2021 Influenza Vaccine (FLU shot) Completed 04/2024, 09/25/2023, 05/16/2021 HPV (Gardasil) Vaccine Aged Out No lo nger eligible based on patient's age to complete this topic MENINGOCOCCAL (MENACTRA/MENVEO) Aged Out No longer eligible based on patient's age to complete this topic documented as of this encounter Medical Devices Not on filedocumented as of this encounter Visit Diagnoses Diagnosis Pre-operative respiratory examination- Primary Chronic hypoxemic respiratory failure (HCC) Chronic respiratory failure Adenocarcinoma of lower lobe of right lung (HCC) SUMMER (obstructive sleep apnea) Obstructive sleep apnea (adult) (pediatric) COPD, moderate (HCC) Chronic airway obstruction, not elsewhere classified Gastroesophageal reflux disease without esophagitis Esophageal reflux Rheumatoid factor positive Other and unspecified nonspecific immunological findings Chronic rhinitis documented in this encounter Care Teams Optical Mechanic Apprentice Relationship Specialty Start Date End Date Negin Mcclain DO [address] [place] [address] PCP - General Family Medicine 09/25/23 documented as of this encounter
--- OUTSIDE RECORDS SUMMARY | 2024-04-30 14:49 | External Medical Summary | Summary of Care ---
Author Name Unknown Organization [facility] Address [address] [facility] [address] Phone [phone] Care Team Providers Care Arch Support Technician Name Role Phone Johny Negin Ascencion Alatorre DO Primary Care Provider + Reason for Visit * Reason Onset Date Comments Pre-op Clearance 04/23/2024 Requesting sebastian ch for right hip replacement based off of 03/23/24 visit Encounter Details Date Type Department Care Team (Late st Contact Info) Description 04/23/2024 Telephone Pulmonary Medicine Rafael Jacobo [address] [phone] Garcia Grijalva MD [address] [id number] Pre-op Clearance (Requesting clearance for... Allergies No known active allergiesdocumented as of [...] the day 90 Cap 3 03/05/2021 Active OneTouch Delica Plus [id number] As Directed 100 Each 1 05/30/2023 Active Funifiio Flex System w/Device Kit Test daily as [...] 2 Capsules by mouth daily. 11/04/2023 Active Advanced Oncotherapy In Vitro Strip (Glucose Blood) Check blood [...] As directed 100 Each 1 03/12/2024 Active Respiratory Therapy Supplies DeviceIndications :ILD (interstitial lung disease) ([facility]),Chronic hypoxemic respiratory failure (HCC) CPAP 8 cm [...] mRNA, LNP-s, No Pre serve, 2-Dose Series (Itaconix) 11/13/2020,10/23/2020 COVID-19, LNP-s, No Preserve , Julian-sucrose, Ages 12+ (Itaconix) 12/08/2021,06/18/2021 Covid-19, Mrna, Lnp-s, Pf, B ivalent, 30 Mcg, IM, 12 yrs and above (Itaconix) 06/08/2022 Pneumococcal Conjugate Vacci ne, 20-valent ([id number]) 12/27/2021 Pneumococcal Polysaccharide PPV23 (Pneumovax) 03/06/2021(Deferred: Patient [...] on file documented as of this encounter Miscellaneous Notes * Telephone Encounter - Marcelina Reeves OSA - 04/27/2024 2:38 PM EDT Patient aware and scheduled via Video visit with Dr. Grijalva for pulmonary clearance today at 1:40 pm. * Telephone Encounter - Marcelina Reeves OSA - 04/27/2024 8:18 AM EDT Left message for patient to return call. Patient's insurance is OON with us. * Telephone Encounter - Garcia Grijalva MD - 04/26/2024 4:00 PM EDT We can do a video visit for pre op clearance tomorrow and I can be double booked Thank you * Telephone Encounter - Marcelina Reeves OSA - 04/23/2024 3:41 PM EDT Per Judi Muir PA-C is asking if Dr. Grijalva can give pulmonary clearance for patient's right hip replacement scheduled for 04/30/24, based off her visit from 03/23/24. Dr. Scott from [facility] will be doing the surgery. Please review and advise. Thank you. documented in this encounter Plan of Treatment Upcoming Encounters Date Type Department Care Team (Late st Contact Info) Description 06/11/2024 12:30 PM EST Appointment Rad[facility], [facility] [address] [facility] [address] 06/22/2024 1:00 PM EST Office Visit Radiation Oncology, [facility] [address] [facility] [address] IovoliTirso MD [address] [facility] [phone] 03/23/2025 2:30 PM EDT [facility], [address] [address] [facility], Pulm Function Room [address] [place], [place] [address] [address] 03/23/2025 3:00 PM EDT [facility], [address] [address] [facility], Pulm Function Room [address] [facility] [address] 04/13/2025 1:40 PM EDT Office Visit Pulmonary Medicine [place] [address] [phone] Garcia Grijalva MD [address] [facility] [place] [id number] Scheduled Procedures Name Priority Associated Diagnoses Date/Ti [...] Not on filedocumented as of this encounter Care Teams Arch Support Technician Relationship Specialty Start Date End Date Negin Mcclain DO [address] [place], [place] [id number] PCP - General Family Medicine 09/25/23 documented as of this encounter
--- OUTSIDE RECORDS SUMMARY | 2024-04-30 14:49 | External Medical Summary | Summary of Care ---
Author Name Unknown Organization [facility] Address [address] [facility] [place] [address] Phone [phone] Care Team Providers Care Mailing Machine Helper Name Role Phone JohnyNegin Malorie Primary Care Provider + Reason for Visit * Reason Comments Follow Up Encounter Details Date Type Department Care Team (Late st Contact Info) Description 04/27/2024 1:40 PM EDT Telemedicine Pulmonary Medicine Rafael Jacobo [address] [phone] Garcia Grijalva MD [address] [id number] Pre-operative respiratory examination*; Chronic hypoxemic respiratory failure [...] the day 90 Cap 3 03/05/2021 Active InSpaTouch Delica Plus [id number] As Directed 100 Each 1 05/30/2023 Active InSpaTouch Verio Flex System w/Device Kit Test daily [...] 2 Capsules by mouth daily. 11/04/2023 Active EnergyChest In Vitro Strip (Glucose Blood) Check blood [...] mRNA, LNP-s, No Pre serve, 2-Dose Series ([employer]) 11/13/2020,10/23/2020 COVID-19, LNP-s, No Preserve , Julian-sucrose, Ages 12+ (Pfizer) 12/08/2021,06/18/2021 Covid-19, Mrna, Lnp-s, Pf, B ivalent, 30 Mcg, IM, 12 yrs and above (Pfizer) 06/08/2022 Pneumococcal Conjugate Vacci ne, 20-valent ([id number]) 12/27/2021 Pneumococcal Polysaccharide PPV23 (Pneumovax) 03/06/2021(Deferred: Patient [...] 04/27/2024 1:57 PM EDT 04/27/2024 Pulmonary Medicine [facility] Harold [address] [facility] [id number] Katerina Rodriguez 1965 female 58 year [...] acquired her CPAP when she was in [place] and has not been following up in the [facility]. She had CT chest, and PET CT - 02/2023 and was scheduled for CT biopsy of nodule. Interm History/Respiratory Symptoms Cough: no Hemoptysis: no Sinus Symptoms: no Hospitalizations: no ED Trips: no Triggers: no Nocturnal: no CPAP/BiPAP/O2: cpap and oxygen DME Supplier: [facility] Flu Vaccine: 2023 Pneumovax: no Prevnar: 2021 COVID 19: x 6 CAT mMRC Results 03/08/2024 10:19 03/22/2024 15:07 04/27/2024 12:48 Modified Medical Research [place] Dyspnea Scale When do you become breathless? 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 01/2021 moved here from [place]. Social Determinants of Health Food Insecurity: No Food Insecurity (12/25/2021) Hunger Vital Sign Worried About Running Out of Food in the Last Year: Never true Ran Out of Food in the Last Year: Never true Social Connections Family History Problem Relation Name Age of Onset No Known Problems Sister Scarlett Other (Other) Other NC's BrCA's one fatality from brca Lung cancer Mother With extensive mets, age 49 Lung cancer Father in his 40s Diabetes Sister (Half) Michelle COPD Sister (Half) Michelle Breast Cancer Sister (Half) Michelle Diabetes Sister (Half) [place] COPD Sister (Half) [place] Hyperlipidemia Brother (Half) Edward Hypertension Brother (Half) [...] day 90 Cap 3 OneTouch Delica Plus [id number] As Directed 100 Each 1 RightScaleio Flex System w/Device Kit Test daily as [...] (Colace) Take 2 Capsules by mouth daily. EnergyChest In Vitro Strip (Glucose Blood) Check blood sugars three times daily as directed. 100Strip 5 Trelegy Ellipta 200-62.5-25 MCG/ACT Aerosol Powder Breath Activated (Nnkuzujfylg-Phtyzmimmeoy-Vrdkoakpvq) Use 1 inhalation daily 60 Each 2 [...] 20 mEq (1 tablet) orally twice a [id number] Tablet 3 Cetirizine HCl 10 MG Oral [...] no CPAP/BiPAP/O2: cpap and oxygen DME Supplier: [facility] Flu Vaccine: 2023 Pneumovax: no Prevnar: 2021 COVID 19: x 6 CAT mMRC Results 03/08/2024 10:19 03/22/2024 15:07 04/27/2024 12:48 Modified Medical Research [place] Dyspnea Scale When do you become breathless? [...] Description 06/11/2024 12:30 PM EST Appointment Radiology, [address] [address] 06/22/2024 1:00 PM EST Office Visit Radiation Oncology, [facility] [address] [facility] [address] IovoliTirso MD [address] [facility] [phone] 03/23/2025 2:30 PM EDT [facility] Lab, [address] [address] [facility], Pulm Function Room [address] [place], [place] [address]anda [id number] 03/23/2025 3:00 PM EDT [facility], [address] [address] [facility], Pulm Function Room [address] [place], [place] [address], [place] [address] 04/13/2025 1:40 PM EDT Office Visit Pulmonary Medicine Rafael Jacobo [address] [phone] Garcia Grijalva MD [address] [id number] Scheduled Procedures Name Priority Associated Diagnoses Date/Ti [...] rhinitis documented in this encounter Care Teams Mailing Machine Helper Relationship Specialty Start Date End Date Negin Mcclain DO [address] [place] [address] PCP - General Family Medicine 09/25/23 documented as of this encounter
[2024-04-30] MEDS: ceFAZolin 1000MG 1,000 MG/7.5 ML SYR IV SCH (16:59)
[2024-04-30] MEDS: TRANEXAMIC ACID / 0.7% NACL 1,000 MG/100 ML BAG IV SCH (16:59)
[2024-04-30] MEDS: ASCORBIC ACID 500 MG TAB PO SCH (17:00)
[2024-04-30] MEDS: ATORVASTATIN 40 MG TAB PO SCH (20:48)
[2024-04-30] MEDS: CITALOPRAM 20 MG TAB PO SCH (20:49)
[2024-04-30] MEDS: ASPIRIN 81 MG ECTAB PO SCH (20:49)
[2024-04-30] MEDS: POTASSIUM CHLORIDE CRTAB 20 MEQ TABCR PO SCH (20:49)
[2024-04-30] MEDS: DOCUSATE SODIUM 100 MG CAP PO SCH (20:50)
[2024-04-30] MEDS: SENNA 8.6 MG TAB PO SCH (20:50)
[2024-04-30] MEDS: CETIRIZINE HCL 10 MG TABLET PO SCH (20:51)
[2024-04-30] MEDS ORDERED: SITagliptin PHOSPHATE 25 MG TAB PO SCH (21:00)
[2024-04-30] MEDS ORDERED: SENNA 8.6 MG TAB PO SCH (21:00)
[2024-05-01 05:50] VITALS: RESP 16
[2024-05-01 07:10] LABS: Basophils # (auto) 0.02 K/uL (0.00-0.20); Basophils % (auto) 0.1 %; Eosinophils # (auto) 0.01 K/uL (0.00-0.50); Eosinophils % (auto) 0.1 %; Hematocrit (blood only) 33.2 % (37.0-47.0); Immature Granulocytes # (auto) 0.08 K/uL (0.01-0.20); Immature Granulocytes % (auto) 0.5 %; Lymphocytes # (auto) 2.26 K/uL (1.20-3.40); Lymphocytes % (auto) 13.4 %; Mean Corpuscular Hemoglobin 27.9 pg (25.0-34.0); Mean Corpuscular Hgb Conc 33.1 g/dL (32.0-36.0); Mean Corpuscular Volume 84.3 fL (80.0-100.0); Mean Platelet Volume 10.9 fL (9.4-12.4); Monocytes # (auto) 1.44 K/uL (0.11-0.59); Monocytes % (auto) 8.5 %; Neutrophils # (auto) 13.04 K/uL (1.40-6.50); Neutrophils % (auto) 77.4 %; Platelet Count 257 K/uL (130-400); RDW Coefficient of Variation 12.2 % (11.5-14.5); RDW Standard Deviation 37.2 fL (36.4-46.3); Red Blood Count 3.94 M/uL (4.20-5.40); White Blood Count 16.85 K/ul (4.8-10.8)
[2024-05-01 07:24] LABS: BUN Creatinine Ratio 25.9 (10-20); Calcium 8.2 mg/dl (8.6-10.3); Creatinine Clr Calc Pharmacy 102.4 ml/min; Potassium 3.1 mmol/L (3.5-5.1)
--- NOTE | 2024-05-01 07:26 | Orthopedic Progress Note ---
Date of Service May 01, 2024 Assessment & Plan (1) Status post right hip replacement: Plan: 58-year-old female with multiple medical comorbidities now postop day 1 from right hip replacement. She is doing pretty well. Pains controlled. Hips located. She is neurologically intact. Plan: 1. DVT prophylaxis including thigh-high teds, SCDs, aspirin twice a day. 2. PT/OT. She can weight-bear as tolerated. Needs to obey hip precautions. 3. Pain control doing okay with current pain regimen. 4. Disposition. Plan is to discharge to home. Her daughter who is a PROGRAM ADMIN is good to help assist in her care. Will set up home health. (2) Small cell lung cancer: (3) HTN (hypertension): (4) HLD (hyperlipidemia): (5) GERD (gastroesophageal reflux disease): (6) Diabetes mellitus: (7) COPD (chronic obstructive pulmonary disease): (8) Asthmatic bronchitis: Admission and Anticipated Discharge Date Admission Date: April 30, 2024 Subjective 58-year-old female postop day 1 from a right total hip replacement. She is doing pretty well this morning. Pain is controlled. Denies any chest pain or shortness of breath. Not feeling dizzy or lightheaded. Physical Exam Physical Exam: Physical examination was a pleasant middle-age female. She is lying in bed looks pretty comfortable this morning. Examination of the right hip and leg reveals the Prevena VAC dressing to be in place. Leg lengths are equal. Thigh is soft and supple. She is neurologically intact. Respiratory: normal respiratory effort, lungs clear to auscultation Cardiovascular: RRR, no murmur, no edema Gastrointestinal (Abdomen): normal bowel sounds, soft, nontender, no hepatosplenomegaly Results & Data Vital Signs (Past 12 Hours) Vital Signs Temp Pulse Resp BP BP Pulse Ox O2 Del Method 05/01/24 05:49 16 92 05/01/24 04:19 18 96 05/01/24 03:48 36.6 C 63 18 115/72 96 Nasal Cannula 05/01/24 02:23 16 93 05/01/24 01:42 15 92 05/01/24 00:40 14 93 04/30/24 23:46 36.6 C 67 15 111/71 96 Nasal Cannula 04/30/24 23:35 16 96 04/30/24 22:54 16 94 04/30/24 21:48 16 95 04/30/24 20:23 16 95 04/30/24 19:31 16 95 04/30/24 19:31 36.3 C L 89 16 110/70 95 Nasal Cannula 04/30/24 19:30 Room Air, Nasal Cannula O2 Flow Rate 05/01/24 05:49 05/01/24 04:19 05/01/24 03:48 05/01/24 02:23 05/01/24 01:42 05/01/24 00:40 04/30/24 23:46 2 04/30/24 23:35 04/30/24 22:54 04/30/24 21:48 04/30/24 20:23 04/30/24 19:31 04/30/24 19:31 2 04/30/24 19:30 2 Laboratory Results Hemoglobin is 11.0. Hematocrit is 33.2. Electrolytes are pending.
[2024-05-01 08:18] VITALS: PULSE 60; TEMP 97.7; O2SAT 97
[2024-05-01] MEDS: EMPAGLIFLOZIN 10 MG TAB PO SCH (08:22)
[2024-05-01] MEDS: MULTIVITAMIN TAB PO SCH (08:22)
[2024-05-01] MEDS: PANTOprazole 40 MG TAB PO SCH (08:22)
[2024-05-01] MEDS: hydroCHLOROthiazide 25 MG TAB PO SCH (08:22)
[2024-05-01] MEDS: dexAMETHasone 10 MG in SYRINGE 0 ML IV SCH (08:22)
[2024-05-01] MEDS: FLUTICASONE PROPIONATE NA SPR 16 GM BTL NAE SCH (08:23)
[2024-05-01] MEDS: FLUTICASONE FUROATE 200MCG 14 PUFFS/INHALER INH SCH (08:23)
[2024-05-01] MEDS: UMECLIDINIUM/VILANTEROL 62.5/25MCG 7 PUFFS/INHALER INH SCH (08:23)
[2024-05-01] MEDS: LANTUS PER UNIT CHARGE SC SCH (08:35)
[2024-05-01] MEDS ORDERED: NON-FORMULARY MEDICATION (Glipizide 10 mg tablet extended release 24hr) PO SCH (09:00)
[2024-05-01] MEDS ORDERED: NON-FORMULARY MEDICATION (Fluticasone-Umeclidin-Vilanter [Trelegy Ellipta] 200-62.5-25 mcg INH SCH (09:00)
[2024-05-01 11:06] VITALS: BP 110/70
== END 2024-05-01 12:39 | disposition home health service (06) ==
LOC: ASU 06:12 → 3W 06:12
DX: I10 Essential (primary) hypertension; E78.5 Hyperlipidemia, unspecified; Z87.891 Personal history of nicotine dependence; K21.9 Gastro-esophageal reflux disease without esophagitis; E11.9 Type 2 diabetes mellitus without complications; F32.A Depression, unspecified; Z79.899 Other long term (current) drug therapy; Z87.09 Personal history of other diseases of the respiratory system; J44.9 Chronic obstructive pulmonary disease, unspecified; M16.11 Unilateral primary osteoarthritis, right hip; Z79.82 Long term (current) use of aspirin; Z79.84 Long term (current) use of oral hypoglycemic drugs; C34.90 Malignant neoplasm of unspecified part of unspecified bronchus or lung; J45.909 Unspecified asthma, uncomplicated; M79.18 Myalgia, other site